=== PATIENT | male | born 1945 | race Caucasian/White ===

== ENCOUNTER 2016-09-02 12:26 | Day surgery (SDC) | payer MEDICARE, OTHER ==
[~2016-09-02] VITALS: Ht 177.8 cm; Wt 95.2 kg
[~2016-09-02 12:26] MED LIST: ASPI-973 PO; CELE200C PO; CYCL10TA9 PO; FINA5TAB9 PO; GLUC-120 PO; LORA0.5T PO; MULT240L7 PO; OMEP20CA11 PO; SIMV20TA4 PO; Sodium Chloride LOK Flush 10 mL Syringe IV PRN; TAMS0.4C98 PO; TRAM50TA2 PO; ZLP5T PO; fentaNYL-PF 50 mCg/mL 2 mL Inj IVPUSH PRN
[2016-09-02 12:44] VITALS: BP 126/77; PULSE 74; RESP 16; O2SAT 99
[2016-09-02] MEDS: 0.9% Sodium Chloride 1,000 ML IV SCH ×2 (12:57→13:49)
[2016-09-02 13:56] VITALS: BP 115/72; PULSE 79; RESP 16; O2SAT 96
[2016-09-02 14:06] VITALS: BP 139/69; PULSE 77; RESP 16; O2SAT 95
--- NOTE | 2016-09-02 21:43 | ENDO ---
[address] [address] ENDOSCOPY PROCEDURE PATIENT: HAROON HOWELL : 1945 MR#: [id number] ADMIT: 09/02/2016 JOB ID: [id number] DATE OF SERVICE: 09/02/2016 PREOPERATIVE DIAGNOSIS(ES): 1. Right upper quadrant pain. 2. History of Crowley's esophagus. POSTOPERATIVE DIAGNOSIS(ES): Mild nonerosive gastritis. ANESTHESIA: 1. Fentanyl 100 mcg. 2. Versed 5 mg IV administered. COMPLICATIONS: None. BLOOD LOSS: Minimal. DESCRIPTION OF PROCEDURE: After risks and benefits were explained to the patient, informed consent was obtained. After anesthesia administered, upper endoscope was then inserted into the mouth and intubated into the esophagus, stomach, 2nd portion of duodenum and mucosa carefully examined. After procedure was done, the scope withdrawn and procedure terminated. FINDINGS: On inspection of the esophagus, the esophagus was normal without masses, ulcers, or lesions. Z-line located 35 cm from incisors. Upon entry into the stomach, there was mild nonerosive gastritis. No masses or ulcers were seen. Retroflexion normal, duodenal bulb, 1st and 2nd portion normal. Biopsies taken in antrum, body of stomach and mid and distal esophagus. IMPRESSION: Mild nonerosive gastritis. RECOMMENDATION: Await pathology results. Follow up in GI clinic as needed.
--- NOTE | 2016-09-04 10:02 | PATH ---
SURGICAL PATHOLOGY Attending Physician:Champ Ham MD CASE STATUS: Signed Out PATIENT NAME: CHAMP HOWELL PID: [id number] : 1945 DATE COLLECTED:09/02/2016 00:00 SPECIMEN: 1: Stomach, Antrum, Biopsy 2: Gastric, Biopsy 3: Esophagus, Biopsy CLINICAL HISTORY: 1. ANTRUM BX 2. BODY BX 3. DISTAL ESOPHAGUS BX FINAL DIAGNOSIS: 1.GASTRIC ANTRUM BIOPSY: SUPERFICIAL MUCOSAL HYPEREMIA WITHOUT ASSOCIATED SIGNIFICANT INFLAMMATION INVOLVING ANTRAL MUCOSA. Negative for evidence of Helicobacter. Negative for intestinal metaplasia. Negative for dysplasia and malignancy. 2.GASTRIC BODY BIOPSY: SUPERFICIAL MUCOSAL HYPEREMIA WITH ASSOCIATED MINIMAL FOCAL CHRONIC GASTRITIS INVOLVING FUNDIC MUCOSA. Negative for evidence of Helicobacter. Negative for intestinal metaplasia. Negative for dysplasia and malignancy. 3.DISTAL ESOPHAGUS BIOPSY: SQUAMOUS MUCOSA WITH MINIMAL AMOUNT OF GASTRIC CARDIA-TYPE MUCOSA POSITIVE FOR SPECIALIZED METAPLASIA OF AGARWAL' S-TYPE ESOPHAGUS. Negative for dysplasia and malignancy. Negative for squamous intraepithelial eosinophils. ICD10 K22.70 GROSS DESCRIPTION: The specimen is received in three formalin filled containers labeled with the patient's name. 1). The specimen is sublabeled "antrum" and consists of 2 portions of tissue which aggregate to 0.4 x 0.3 x 0.2 CM. The specimen is entirely submitted in cassette 1A. 2). The specimen is sublabeled "gastric body" and consists of a 0.3 x 0.3 x 0.2 CM portion of tissue which is entirely submitted in cassette 2A. 3). The specimen is sublabeled "distal esophagus" and consists of 2 portions of tissue which aggregate to 0.2 x 0.2 x 0.2 CM. The specimen is entirely submitted in cassettes 3A. 09/03/2016 [facility] MICRO DESCRIPTION: See diagnosis. ICD-9 CODES: CPT CODES: 1: 94854 2: 82408 3: 10721 Electronically Signed Out Suleman Wick MD [facility] [address] [facility], [place] [address] Technical component performed at [facility], [facility] [address], [address]
== END 2016-09-02 23:59 | disposition home or self-care (01) ==
LOC: END 12:26
PROVIDERS: ATTEND Internal Medicine Gastroenterology
DX: K22.70 Barrett's esophagus without dysplasia (principal); K29.50 Unspecified chronic gastritis without bleeding; K21.9 Gastro-esophageal reflux disease without esophagitis; K44.9 Diaphragmatic hernia without obstruction or gangrene; R10.11 Right upper quadrant pain; Z79.82 Long term (current) use of aspirin
CPT/HCPCS: 43239; G0500; J2250; J3010; J7030